=== PATIENT | female | born 1940 | race African-American/Black ===

== ENCOUNTER 2020-07-16 15:08 | Emergency (ER) | payer OTHER, MEDICAID ==
[~2020-07-16] VITALS: Ht 160 cm; Wt 68.0 kg
[2020-07-16] MEDS ORDERED: cloNIDine HCL 0.1 MG TAB PO ONE (15:15)
[2020-07-16 15:54] LABS: Basophils # (auto) 0.1 10 ^3/uL (0-0.2); Basophils % (auto) 1.2 % (0.0-2.0); Eosinophils # (auto) 0.1 10 ^3/uL (0-0.8); Eosinophils % (auto) 1.4 % (0.0-7.0); Hematocrit 39.4 % (36.0-46.0); Hemoglobin 13.3 g/dL (12.2-16.2); Lymphocytes # (auto) 1.6 10 ^3/uL (0.4-5.4); Lymphocytes % (auto) 27.6 % (10.0-50.0); Mean Corpuscular Hemoglobin 29.9 pg (28.0-32.0); Mean Corpuscular Hgb Conc. 33.7 g/dL (32.0-36.0); Mean Corpuscular Volume 88.5 fL (80.0-100.0); Monocytes # (auto) 0.7 10 ^3/uL (0-1.3); Monocytes % (auto) 12.9 % (0.0-12.0); Neutrophils # (auto) 3.3 10 ^3/uL (1.6-8.6); Neutrophils % (auto) 56.9 % (37.0-80.0); Nucleated Red Blood Cells % 0.2 %; Platelet Count (auto) 313 10^3/uL (140-450); Red Blood Cells 4.45 10^6/uL (4.0-5.20); Red Cell Distribution Width 13.8 % (11.8-14.3); White Blood Cell 5.7 10^3/uL (4.4-10.8)
[2020-07-16 16:10] LABS: Albumin 3.5 g/dL (3.4-5.0); Anion Gap 7 (5-15); Blood Urea Nitrogen 13 mg/dL (7-18); Calcium 9.1 mg/dL (8.5-10.1); Carbon Dioxide 27 mmol/L (21-32); Chloride 103 mmol/L (98-107); Glucose 154 mg/dL (74-106); Potassium 3.7 mmol/L (3.5-5.1); Sodium 137 mmol/L (136-145)
[2020-07-16 16:10] LABS: Urine Bacteria NONE SEEN /hpf (None Seen); Urine Blood TRACE /uL (Negative); Urine Specific Gravity 1.026 (1.001-1.035); Urine WBC 12 /hpf (0 - 5)
[2020-07-16 16:12] LABS: Alanine Aminotransferase 21 U/L (13-56); Alkaline Phosphatase 69 U/L (45-117); Aspartate Aminotransferase 18 U/L (15-37); BUN/Creatinine Ratio 19.1; Bilirubin, Total 0.6 mg/dL (0.2-1.0); GFR African American 107 mL/min; GFR Non-African American 89 mL/min; Total Protein 8.3 g/dL (6.4-8.2)
[2020-07-16] MEDS ORDERED: SODIUM CHLORIDE 0.9% 1,000 ML IV ONE (17:00)
[2020-07-16 18:30] VITALS: BP 154/75
== END 2020-07-16 19:00 | disposition home or self-care (01) ==
LOC: ER 15:08
DX: I10 Essential (primary) hypertension (principal); N39.0 Urinary tract infection, site not specified; G89.29 Other chronic pain
CPT/HCPCS: 36415; 71046; 80053; 81001; 83735; 84443; 84484; 85025; 93005; 96360

== ENCOUNTER 2022-02-02 17:56 | Emergency (ER) | payer OTHER, MEDICAID ==
[~2022-02-02] VITALS: Ht 157.5 cm; Wt 65.0 kg
[2022-02-02 18:11] VITALS: BP 184/79
[2022-02-02] MEDS ORDERED: ACET-1158 PO (19:59)
[2022-02-02] MEDS ORDERED: BACL10TA PO (19:59)
== END 2022-02-02 20:50 | disposition home or self-care (01) ==
LOC: ER 17:56
DX: M54.16 Radiculopathy, lumbar region (principal); I10 Essential (primary) hypertension
CPT/HCPCS: 72100; 93005

== ENCOUNTER 2022-12-01 15:04 | Emergency (ER) | payer OTHER, MEDICAID ==
[~2022-12-01] VITALS: Ht 160 cm; Wt 63.0 kg
[~2022-12-01 15:04] MED LIST: ACET500T58 PO; BACL10TA PO
[2022-12-01 20:41] VITALS: BP 171/81; PULSE 89; RESP 16; TEMP 98.3; O2SAT 98
[2022-12-01] MEDS ORDERED: ACETAMINOPHEN 325 MG TAB PO ONE (20:45)
== END 2022-12-01 20:55 | disposition home or self-care (01) ==
LOC: ER 15:04
DX: R10.9 Unspecified abdominal pain (principal); I10 Essential (primary) hypertension; W10.8XXA Fall (on) (from) other stairs and steps, initial encounter; Y93.89 Activity, other specified; Y92.89 Other specified places as the place of occurrence of the external cause; Y99.8 Other external cause status
CPT/HCPCS: 74176

== ENCOUNTER 2024-10-08 16:24 | Emergency (ER) | payer OTHER, MEDICAID ==
[~2024-10-08] VITALS: Ht 154.9 cm; Wt 64.5 kg
[2024-10-08 16:55] VITALS: TEMP 97.9
--- NOTE | 2024-10-08 17:00 | ED.PDOC ---
History of Present Illness(SKN HPI Comments 83 y.o female with PMHx of HTN and DM, presents to the ED for an evaluation of breast discomfort that has been ongoing for the past 3 months. Patient reports noticing left nipple change of color compared to the right side, states it was leaking a couple weeks ago but has resolved. Patient states having a "weird sensation" but no pain noted. Patient denies any fever, chills. 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/22 Baclofen (Baclofen) 10 Mg Tab, 10 MG PO TID PRN, #10 TAB Prov:GILLIAN TEE 02/02/22 Information Source: Patient Mode of Arrival: Ambulatory Severity: Moderate Timing: Months (3) Duration: Since onset Location: Trunk Mechanism: Preceding Wound Object: Unknown Condition of Object: None Retained Foreign Body: Unknown Wound Type: Unknown Associated Signs and Symptoms: Redness Past Medical History PAST MEDICAL HISTORY: DM, HTN Surgical History: Denies all surgeries WEAVING TEACHER History: No Pertinent WEAVING TEACHER History Family History Family History: Reviewed,noncontributory to illness Social History Smoker: Non-Smoker Alcohol: Denies ETOH Use Drugs: Denies Drug Use Lives In: Home Constitutional: denies: chills, diaphoresis, fatigue, fever, malaise, sweats, weakness, others EENTM: denies: blurred vision, double vision, ear bleeding, ear discharge, ear drainage, ear pain, ear ringing, eye pain, eye redness, hearing loss, mouth pain, mouth swelling, nasal discharge, nose bleeding, nose congestion, nose pain, photophobia, tearing, throat pain, throat swelling, voice changes, others Respiratory: denies: cough, hemoptysis, orthopnea, SOB at rest, shortness of breath, SOB with excertion, stridor, wheezing, others Cardiovascular: denies: chest pain, dizzy spells, diaphoresis, Dyspnea on exertion, edema, irregular heart beat, left arm pain, lightheadedness, palpitations, PND, syncope, others Gastrointestinal: denies: abdomen distended, abdominal pain, blood streaked bowels, constipated, diarrhea, dysphagia, difficulty swallowing, hematemesis, melena, nausea, poor appetite, poor fluid intake, rectal bleeding, rectal pain, vomiting, others Genitourinary: denies: abnormal vagina bleeding, burning, dyspareunia, dysuria, flank pain, frequency, hematuria, incontinence, pain, , vagina discharge, urgency, others Neurological: denies: dizziness, fainting, headache, left sided numbness, left sided weakness, numbness, paresthesia, pre-existing deficit, right sided numbnes s, right sided weakness, seizure, speech problems, tingling, tremors, weakness, others Musculoskeletal: denies: back pain, gout, joint pain, joint swelling, muscle pain, muscle stiffness, neck pain, others Integumetry: reports: rash (left breast ); denies: bruises, change in color, change in hair/nails, dryness, laceration, lesions, lumps, wounds, others Allergic/Immunocompromised: denies: Difficulty Healing, Frequent Infections, Hives, Itching, others Hematologic/Lymphatic: denies: anemia, blood clots, easy bleeding, easy br uising, swollen glands, others Endocrine: denies: excessive hunger, excessive sweating, excessive thirst, excessive urination, flushing, intolerance to cold, intolerance to heat, unexplained weight gain, unexplained weight loss, others Psychiatric: denies: anxiety, bipolar disorder, depression, hopeless, panic disorder, schizophrenia, sleepless, suicidal, others All Other Systems: Reviewed and Negative Physical Exam General Appearance: No Apparent Distress HEENT: Normal ENT Inspection, Pharynx Normal, TMs Normal Neck: Full Range of Motion, Non-Tender, Normal, Normal Inspection Respiratory: Chest Non-Tender, Lungs Clear, No Accessory Muscle Use, No Respiratory Distress, Normal Breath Sounds Cardiovascular: No Edema, No JVD, No Murmur, No Gallop, Normal Peripheral Pulses, Regular Rate/Rhythm Breast Exam: Other (Small area of discoloration around the left nipple region) Gastrointestinal: No Organomegaly, Non Tender, No Pulsatile Mass, Normal Bowel Sounds, Soft Genitalia: Deferred Pelvic: Deferred Rectal: Deferred Extremities: No calf tenderness, Normal capillary refill, Normal inspection, Normal range of motion, Non-tender, No pedal edema Musculoskeletal : Apperance: Normal Neurologic: Alert, apartment groundskeeper II-XII nml as Tested, No Motor Deficits, Normal Affect, Normal Mood, No Sensory Deficits Cerebellar Function: Normal Reflexes: Normal Skin: Dry, Normal Color, Warm Lymphatic: No Adenopathy Was a procedure done? Was a procedure done?: No Differential Diagnosis (INTG) Differential Diagnosis: N/A Differential Diagnosis: Atopic dermatitis, Cellulitis, Contact Dermatitis, Drug Reaction X-Ray, Labs, Meds, VS Vital Signs Date Time Temp Pulse Resp B/P (MAP) Pulse Ox O2 Delivery O2 Flow Rate FiO2 10/08/24 16:55 97.9 100 18 157/86 (109) 95 97.9 Time of 1ST Reevaluation: 17:00 Reevaluation 1ST: Unchanged Patient Education/Counseling: Diagnosis, Treatment, Prognosis, Need For Follow Up Family Education/Counseling: No Family Present SEPSIS Sepsis Screen Vital Signs Date Time Temp Pulse Resp B/P (MAP) Pulse Ox O2 Delivery O2 Flow Rate FiO2 10/08/24 16:55 97.9 100 18 157/86 (109) 95 97.9 Departure 1 Departure Time of Disposition: 17:11 Impression: Primary Impression: Breast pain Disposition: 01 HOME / SELF CARE / HOMELESS Condition: Fair Discharged With: Self Critical Care Note Critical Care Time?: No Stability Stability form required: No I personally scribed for JIM GUTIERREZ MD ([email or web address]) on 10/08/24 at 17:00. Electronically submitted by Doris Aguiar ([facility]). JIM GUTIERREZ MD Oct 08, 2024 17:00
[2024-10-08 17:26] VITALS: BP 139/81; PULSE 78; RESP 16; O2SAT 96
== END 2024-10-08 17:24 | disposition home or self-care (01) ==
LOC: ER 16:24
DX: N64.4 Mastodynia (principal); E11.9 Type 2 diabetes mellitus without complications; I10 Essential (primary) hypertension